=== PATIENT | male | born 1975 | race Caucasian/White ===

== ENCOUNTER 2023-12-02 14:08 | Emergency (ER) | payer MEDICAID ==
[~2023-12-02] VITALS: Ht 172.7 cm; Wt 80.0 kg
[2023-12-02 14:13] VITALS: BP 153/61; PULSE 75; RESP 16; TEMP 98.6; O2SAT 99
[2023-12-02] MEDS ORDERED: IBUP-2029 MT (15:28)
[2023-12-02] MEDS ORDERED: CYCL10TA21 MT (15:28)
[2023-12-02] MEDS: IBUPROFEN 600MG TABLET PO ONE (15:59)
== END 2023-12-02 16:01 | disposition home or self-care (01) ==
LOC: ER 14:08
DX: M54.50 Low back pain, unspecified (principal); E11.9 Type 2 diabetes mellitus without complications
CPT/HCPCS: 99283